=== PATIENT | female | born 1940 ===

== ENCOUNTER 2018-02-26 13:00 | Inpatient (IN) | payer OTHER ==
[~2018-02-26] VITALS: Ht 149.9 cm; Wt 58.1 kg
[2018-02-26] MEDS ORDERED: BYSTOLIC10 MG PO (15:51)
[2018-02-26] MEDS ORDERED: ATACAND32 MG PO (15:51)
[2018-02-26] MEDS ORDERED: PEPCID20 MG PO (15:51)
[2018-02-26] MEDS ORDERED: ALPHAGAN P5 M2 OP (15:52)
[2018-02-26] MEDS ORDERED: NORVASC5 MG PO (15:52)
[2018-02-26] MEDS ORDERED: LUMIGAN2.5 M1 OP (15:52)
[2018-02-26] MEDS ORDERED: INTESTINEX680 M1 PO (15:53)
[2018-03-07] MEDS ORDERED: GABAPENTIN800 MG PO (11:31)
[2018-03-07] MEDS ORDERED: DOCUSATE SODIU100 MG PO (11:31)
[2018-03-07] MEDS ORDERED: AMOX-CLAV 875-1 EACH PO (11:32)
[2018-03-07] MEDS ORDERED: PERCOCET 5-3251 EACH PO (11:33)
[2018-03-07] MEDS ORDERED: CLONAZEPAM1 MG PO (11:33)
== END 2018-03-08 18:00 | DRG 460 ==
LOC: O/R 03-07 05:45 → PED 03-07 05:45 → SURG 03-07 13:00 → PED 03-07 16:02
PROVIDERS: Orthopaedic Surgery Orthopaedic Surgery of the Spine
PROC: 0SG10AJ Fusion of 2 or more Lumbar Vertebral Joints with Interbody Fusion Device, Posterior Approach, Anterior Column, Open Approach (ICD-10-PCS; 2018-03-07)
PROC: 0ST20ZZ Resection of Lumbar Vertebral Disc, Open Approach (ICD-10-PCS; 2018-03-07)
PROC: 07DS3ZZ Extraction of Vertebral Bone Marrow, Percutaneous Approach (ICD-10-PCS; 2018-03-07)
PROC: 0SG10A0 Fusion of 2 or more Lumbar Vertebral Joints with Interbody Fusion Device, Anterior Approach, Anterior Column, Open Approach (ICD-10-PCS; principal; 2018-03-07 13:00)
DX: M47.816 Spondylosis without myelopathy or radiculopathy, lumbar region (principal); M43.16 Spondylolisthesis, lumbar region; M48.061 Spinal stenosis, lumbar region without neurogenic claudication; I10 Essential (primary) hypertension